=== PATIENT | female | born 1985 | race American Indian/Alaskan Native ===

== ENCOUNTER 2018-02-20 03:24 | Emergency (ER) | payer BC ==
[2018-02-20 03:55] VITALS: BP 140/92
[2018-02-20] MEDS ORDERED: MOTRIN PO ONE (05:43)
--- NOTE | 2018-02-20 05:47 | Emergency Department Report ---
ED ENT HPI - General Chief complaint: Dental/Oral Stated complaint: TOOTH PAIN Time Seen by Provider: 02/20/18 05:43 Source: patient Mode of arrival: Ambulatory Limitations: No Limitations - History of Present Illness Initial comments: 32-year-old female presents to the emergency room for complaint of mouth pain times approximately 2 weeks. Patient states the pain is in her left upper mouth. She states that she thinks it is her wisdom tooth. Patient is reporting taking Tylenol which she says helps a little bit. Patient denies any fever or chills. He denies any past medical history currently takes no medications on a daily basis and has no known drug allergies. MD complaint: tooth pain -: week(s) (2) Location: tooth # (16) Severity scale (0 -10): 8 Quality: aching, sharp Consistency: constant Improves with: other medication Worsens with: eating Associated Symptoms: gum swelling, toothache. denies: fever, cough - Related Data Previous Rx's Medication Instructions Recorded Last Taken Type Nitrofurantoin [place]/M-Cryst 100 mg PO Q12HR #14 capsule 09/30/13 Unknown Rx [Macrobid] Amoxicillin [Trimox CAP] 500 mg PO Q8H #30 capsule 02/20/18 Unknown Rx Ibuprofen [Motrin 600 MG tab] 600 mg PO Q8H #30 tablet 02/20/18 Unknown Rx Allergies Allergy/AdvReac Type Severity Reaction Status Date / Time No Known Allergies Allergy Verified 09/30/13 01:09 ED Dental HPI - General Chief complaint: Dental/Oral Stated complaint: TOOTH PAIN Time Seen by Provider: 02/20/18 05:43 Source: patient Mode of arrival: Ambulatory Limitations: No Limitations - Related Data Previous Rx's Medication Instructions Recorded Last Taken Type Nitrofurantoin [place]/M-Cryst 100 mg PO Q12HR #14 capsule 09/30/13 Unknown Rx [Macrobid] Amoxicillin [Trimox CAP] 500 mg PO Q8H #30 capsule 02/20/18 Unknown Rx Ibuprofen [Motrin 600 MG tab] 600 mg PO Q8H #30 tablet 02/20/18 Unknown Rx Allergies Allergy/AdvReac Type Severity Reaction Status Date / Time No Known Allergies Allergy Verified 09/30/13 01:09 ED Review of Systems ROS: Stated complaint: TOOTH PAIN Other details as noted in HPI Comment: All other systems reviewed and negative Constitutional: denies: chills, fever ENT: dental pain ED Past Medical Hx - Past Medical History Previous Medical History?: Yes Hx Asthma: Yes (no attack since age 15) - Surgical History Past Surgical History?: No - Social History Smoking Status: Never Smoker Substance Use Type: None - Medications Home Medications: Home Medications Medication Instructions Recorded Confirmed Last Taken Type Nitrofurantoin Atkinson/M-Cryst 100 mg PO Q12HR #14 capsule 09/30/13 Unknown Rx [Macrobid] Amoxicillin [Trimox CAP] 500 mg PO Q8H #30 capsule 02/20/18 Unknown Rx Ibuprofen [Motrin 600 MG tab] 600 mg PO Q8H #30 tablet 02/20/18 Unknown Rx ED Physical Exam - General Limitations: No Limitations General appearance: alert, in no apparent distress - Head Head exam: Present: atraumatic, normocephalic - Eye Eye exam: Present: EOMI - Expanded ENT Exam Expanded Teeth exam: Present: dental caries, fractured tooth # (16), gingival enlargement Throat exam: Positive: normal inspection - Neck Neck exam: Present: normal inspection, full ROM. Absent: lymphadenopathy - Neurological Exam Neurological exam: Present: alert, oriented X3 - Psychiatric Psychiatric exam: Present: normal affect, normal mood - Skin Skin exam: Present: warm, dry, intact, normal color. Absent: rash ED Course Vital Signs 02/20/18 03:51 Temperature 98.8 F Pulse Rate 88 Blood Pressure 140/92 O2 Sat by Pulse 99 Oximetry ED Medical Decision Making - Medical Decision Making Patient has been evaluated by this provider fast track. Ibuprofen ordered for pain management. Patient be discharged home on amoxicillin 500 mg every 8 hours 10 days. And ibuprofen 600 mg by mouth every 8 hours when necessary for pain. Patient be referred to dentist to have the tooth either extracted or repaired. Patient verbalizes understanding Critical care attestation.: If time is entered above; I have spent that time in minutes in the direct care of this critically ill patient, excluding procedure time. ED Disposition Clinical Impression: Abscess, dental Disposition: [id number] TO HOME OR SELFCARE Is pt being admited?: No Does the pt Need Aspirin: No Condition: Stable Instructions: Dental Abscess (ED) Additional Instructions: Please complete antibiotics as prescribed. Please take medication as needed for pain. Follow-up with the dentist to have her tooth removed or repaired. Prescriptions: Amoxicillin [Trimox CAP] 500 mg PO Q8H #30 capsule Ibuprofen [Motrin 600 MG tab] 600 mg PO Q8H #30 tablet Referrals: PRIMARY CARE,MD [Primary Care Provider] - 3-5 Days Forms: Work/School Release Form(ED)
== END 2018-02-20 06:04 | disposition home or self-care (01) ==
LOC: ED 03:24
DX: K04.7 Periapical abscess without sinus (principal); J45.909 Unspecified asthma, uncomplicated
CPT/HCPCS: 99282